=== PATIENT | female | born 1990 | race Caucasian/White ===

== ENCOUNTER 2020-07-09 01:19 | Emergency (ER) | payer OTHER ==
[~2020-07-09 01:19] MED LIST: AZULFIDINE500 MG PO; GLUCOPHAGE500 MG PO; KEFLEX CAP 500500 MG PO; NORCO 5-325 TA1 EACH PO; PLAQUENIL 200200 MG PO; SYNTHROID150 MCG PO; TYLENOL 500 MG500 MG PO; Voltaren Gel 1 % TOP; ZOFRAN4 MG PO; ZOLOFT50 MG PO
[2020-07-09 01:58] LABS: RED BLOOD COUNT 4.63 M/UL (4.00-5.10); WHITE BLOOD COUNT 7.1 K/UL (4.5-11.0)
[2020-07-09 02:31] LABS: BUN/CREATININE RATIO 14 (0-10)
== END 2020-07-09 05:29 | disposition home or self-care (01) ==
LOC: ER1 01:19
PROVIDERS: Family Medicine
DX: O99.345 Other mental disorders complicating the puerperium (principal); F53.0 Postpartum depression; O15.2 Eclampsia complicating the puerperium; O16.5 Unspecified maternal hypertension, complicating the puerperium; O24.434 Gestational diabetes mellitus in the puerperium, insulin controlled; Z20.822 Contact with and (suspected) exposure to COVID-19; Z88.0 Allergy status to penicillin
CPT/HCPCS: 36415; 70450; 71045; 80053; 82550; 82553; 83874; 84484; 84703; 85025; 85610; 93005; 99285; U0002

== ENCOUNTER 2020-09-29 23:59 | Emergency (ER) | payer OTHER ==
[2020-09-30 01:46] LABS: HEMOGLOBIN 10.9 gm/dl (12.3-15.3); RED BLOOD COUNT 4.77 M/UL (4.00-5.10); WHITE BLOOD COUNT 7.6 K/UL (4.5-11.0)
[2020-09-30 02:05] LABS: BUN/CREATININE RATIO 14 (0-10)
[2020-09-30] MEDS ORDERED: ZOFRAN ODT 4 MG4 MG PO (03:03)
[2020-09-30] MEDS ORDERED: OMNICEF 300 MG300 MG PO (03:03)
[2020-09-30] MEDS ORDERED: BENTYL 20MG TAB20 MG PO (03:03)
[2020-10-02 19:09] LABS: CHLAMYDIA TRACHOMATIS, NAA Negative (Negative); NEISSERIA GONORRHOEAE, NAA Negative (Negative)
== END 2020-09-30 03:10 | disposition home or self-care (01) ==
LOC: ER1 23:59
PROVIDERS: Student in an Organized Health Care Education/Training Program
DX: N39.0 Urinary tract infection, site not specified (principal); E11.9 Type 2 diabetes mellitus without complications; E03.9 Hypothyroidism, unspecified; Z88.0 Allergy status to penicillin; Z90.49 Acquired absence of other specified parts of digestive tract
CPT/HCPCS: 80053; 81001; 83690; 84703; 85025; 87210; 96374; 99284; J0696

== ENCOUNTER 2020-10-24 13:47 | Emergency (ER) | payer OTHER ==
[~2020-10-24 13:47] MED LIST changes: +BENTYL 20MG TAB20 MG PO; +OMNICEF 300 MG300 MG PO; +ZOFRAN ODT 4 MG4 MG PO
[2020-10-24] MEDS ORDERED: WELLBUTRIN SR150 MG PO (14:36)
== END 2020-10-24 14:50 | disposition home or self-care (01) ==
LOC: ER1 13:47
DX: F32.9 Major depressive disorder, single episode, unspecified (principal); E11.9 Type 2 diabetes mellitus without complications; D64.9 Anemia, unspecified; Z88.0 Allergy status to penicillin
CPT/HCPCS: 99283

== ENCOUNTER 2020-12-23 00:17 | Emergency (ER) | payer OTHER ==
[~2020-12-23 00:17] MED LIST changes: +WELLBUTRIN SR150 MG PO
== END 2020-12-23 00:56 | disposition expired ==
LOC: ER1 00:17
DX: R52 Pain, unspecified (principal); R11.0 Nausea; E11.9 Type 2 diabetes mellitus without complications; Z90.49 Acquired absence of other specified parts of digestive tract; Z88.0 Allergy status to penicillin
CPT/HCPCS: 99283

== ENCOUNTER 2021-11-06 21:49 | Emergency (ER) | payer OTHER | END 2021-11-06 23:40 | disposition home or self-care (01) | LOC: ER1 21:49 | DX: L50.0 Allergic urticaria (principal) | CPT/HCPCS: 84703; 93005; 99283 ==

== ENCOUNTER 2021-12-18 23:02 | Emergency (ER) | payer OTHER | END 2021-12-19 00:50 | disposition left against medical advice (07) | LOC: ER1 23:02 | DX: Z53.21 Procedure and treatment not carried out due to patient leaving prior to being seen by health care provider (principal) ==

== ENCOUNTER 2021-12-22 13:17 | Emergency (ER) | payer OTHER ==
[2021-12-22 14:06] LABS: HEMOGLOBIN 11.8 gm/dl (12.3-15.3); RED BLOOD COUNT 4.76 M/UL (4.00-5.10); WHITE BLOOD COUNT 6.1 K/UL (4.5-11.0)
[2021-12-22 14:42] LABS: BUN/CREATININE RATIO 12 (0-10)
== END 2021-12-22 21:48 | disposition home or self-care (01) ==
LOC: ER1 13:17
DX: O99.891 Other specified diseases and conditions complicating pregnancy (principal); R07.89 Other chest pain; R51.9 Headache, unspecified; O24.111 Pre-existing type 2 diabetes mellitus, in pregnancy, first trimester; O99.011 Anemia complicating pregnancy, first trimester; M06.9 Rheumatoid arthritis, unspecified; Z90.49 Acquired absence of other specified parts of digestive tract; Z88.0 Allergy status to penicillin
CPT/HCPCS: 71045; 80053; 81001; 82550; 82553; 84484; 84703; 85025; 93005; 99285

== ENCOUNTER 2021-12-26 18:02 | Emergency (ER) | payer OTHER ==
[2021-12-26 20:02] LABS: HEMOGLOBIN 11.7 gm/dl (12.3-15.3); RED BLOOD COUNT 4.71 M/UL (4.00-5.10); WHITE BLOOD COUNT 7.2 K/UL (4.5-11.0)
[2021-12-26 20:47] LABS: BUN/CREATININE RATIO 16 (0-10)
[2021-12-26] MEDS ORDERED: MACROBID 100 M100 MG PO (22:45)
[2021-12-29 22:07] LABS: CHLAMYDIA TRACHOMATIS, NAA Negative (Negative); NEISSERIA GONORRHOEAE, NAA Negative (Negative)
== END 2021-12-26 23:05 | disposition home or self-care (01) ==
LOC: ER1 18:02
PROVIDERS: Family Medicine; Physician Assistant
DX: O20.9 Hemorrhage in early pregnancy, unspecified (principal); R82.71 Bacteriuria; O99.011 Anemia complicating pregnancy, first trimester; O99.281 Endocrine, nutritional and metabolic diseases complicating pregnancy, first trimester; E07.9 Disorder of thyroid, unspecified; O99.891 Other specified diseases and conditions complicating pregnancy; M06.9 Rheumatoid arthritis, unspecified; Z88.0 Allergy status to penicillin; Z3A.01 Less than 8 weeks gestation of pregnancy
CPT/HCPCS: 76817; 80053; 81001; 84702; 85025; 86850; 86900; 86901; 87210; 99284

== ENCOUNTER 2022-02-06 22:40 | Emergency (ER) | payer OTHER ==
[~2022-02-06 22:40] MED LIST changes: +MACROBID 100 M100 MG PO
== END 2022-02-07 00:52 | disposition left against medical advice (07) ==
LOC: ER1 22:40
DX: Z53.21 Procedure and treatment not carried out due to patient leaving prior to being seen by health care provider (principal)